=== PATIENT | female | born 1955 | race Caucasian/White ===

== ENCOUNTER 2021-06-26 11:36 | Outpatient (CLI) | payer BC, SELFPAY ==
[2021-06-26 11:39] LABS: Free T4 Free Thyroxine 1.34 ng/mL (0.78-2.19); Thyroid Stimulating Hormone Reflex < 0.015 uIU/mL (0.465-4.68)
== END 2021-06-26 11:37 | disposition home or self-care (01) ==
LOC: ANHLAB 11:37
PROVIDERS: PCP Internal Medicine Geriatric Medicine; Visit Provider Otolaryngology
DX: E04.1 Nontoxic single thyroid nodule (principal)
CPT/HCPCS: 36415; 84439; 84443

== ENCOUNTER 2021-07-02 12:01 | Outpatient (CLI) | payer BC, SELFPAY ==
--- NOTE | ~2021-07-02 | US_ITS ---
EXAMINATION: US thyroid DATE: 07/02/2021 12:21 INDICATION: Nontoxic goiter with single thyroid nodule TECHNIQUE: Multiple ultrasound images of the thyroid were obtained. COMPARISON: 08/20/2016 FINDINGS: The right thyroid lobe measures 6.6 x 2.4 x 2.6 cm. The left thyroid lobe measures 5.1 x 1.4 x 1.7 c m. Again seen are multiple bilateral solid or predominant solid thyroid hypoechoic nodules which are wider than tall with smooth margins and without echogenic foci nodules (TI-RADS 4, moderately suspic ious , FNA if >=1.5 cm, annual followup is >=1 cm). No significant interval change in the largest whi ch measures 3.8 cm in maximal diameter at the upper pole of the right thyroid. The 2 next largest nod ules in the right thyroid measure 1.7 cm and 1.6 cm in maximal diameters. The largest in the left thy roid lobe measures 1.5 cm in maximal diameter. The largest at the isthmus measures 1.1 cm. IMPRESSION: 1. Multinodular goiter with multiple TI-RADS 4 nodules. The 3 largest in the right thyroid lobe measu ring 1.6, 1.7 and 3.8 cm would meet consensus criteria for ultrasound-guided biopsy and biopsy of the largest nodule would be recommended. There has however been no significant interval change in size o f the largest nodule in nearly 5 years and could also consider continued follow-up. Reviewed, dictated and finalized at location A. ENGINEER IMPRESSION: 1. Multinodular goiter with multiple TI-RADS 4 nodules. The 3 largest in the ri ght thyroid lobe measuring 1.6, 1.7 and 3.8 cm would meet consensus criteria fo r ultrasound-guided biopsy and biopsy of the largest nodule would be recommende d. There has however been no significant interval change in size of the largest nodule in nearly 5 years and could also consider continued follow-up.
== END 2021-07-02 12:02 ==
PROVIDERS: PCP Internal Medicine Geriatric Medicine; Visit Provider Otolaryngology
DX: E04.2 Nontoxic multinodular goiter (principal)
CPT/HCPCS: 76536

== ENCOUNTER 2021-07-09 13:41 | Outpatient (CLI) | payer BC, SELFPAY ==
--- NOTE | ~2021-07-09 | US_ITS ---
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 TECHNIQUE: Multiple ultrasound grayscale images of the kidneys were obtained. COMPARISON: CT abdomen 06/03/2017 FINDINGS: The right kidney is absent. The left kidney measures 10.8 x 5.1 x 5.5 cm. The left kidney demonstrate s normal parenchymal echogenicity. There is no hydronephrosis. The bladder is normal. IMPRESSION: 1. Absent right kidney. 2. Normal left kidney. Reviewed, dictated and finalized at location B. ETING CONTENT MANAGER
== END 2021-07-09 13:42 ==
LOC: MICIMG 13:42
PROVIDERS: PCP Internal Medicine Geriatric Medicine
DX: C64.9 Malignant neoplasm of unspecified kidney, except renal pelvis (principal); Z90.5 Acquired absence of kidney
CPT/HCPCS: 76775

== ENCOUNTER 2022-05-28 07:58 | Outpatient (CLI) | payer MEDICARE, OTHER, SELFPAY ==
[2022-05-28 09:27] LABS: Thyroid Stimulating Hormone < 0.015 uIU/mL (0.465-4.680)
[2022-05-28 09:53] LABS: Free T4 Free Thyroxine 1.14 ng/mL (0.78-2.19)
== END 2022-05-28 07:59 | disposition home or self-care (01) ==
LOC: ANHLAB 08:02
PROVIDERS: PCP Internal Medicine Geriatric Medicine; Visit Provider Otolaryngology
DX: E04.1 Nontoxic single thyroid nodule (principal); E07.9 Disorder of thyroid, unspecified
CPT/HCPCS: 36415; 84439; 84443

== ENCOUNTER 2022-06-02 14:22 | Outpatient (CLI) | payer MEDICARE, OTHER, SELFPAY ==
--- NOTE | ~2022-06-02 | US_ITS ---
EXAMINATION: US thyroid DATE: 06/02/2022 15:44 INDICATION: Nontoxic single thyroid nodule. TECHNIQUE: Multiple ultrasound images of the thyroid were obtained. COMPARISON: Ultrasound 07/02/2021, 08/20/2016 FINDINGS: The right thyroid lobe measures 6.5 x 2.5 x 2.7 cm. The left thyroid lobe measures 4.5 x 1.7 x 1.6 c m. In the right thyroid lobe, there is a 3.4 cm predominantly solid, hypoechoic, wider than tall nod ule with lobulated margin without echogenic foci (TI-RADS TR4), stable from 08/20/2016. In the right th yroid lobe, there is a 1.8 cm solid, hypoechoic, wider than tall nodule with lobulated margin without echogenic foci (TR4), stable from 08/20/16. In the left thyroid lobe, there is a 1.5 cm solid, hypoech oic, wider than tall nodule with lobulated margin without echogenic foci (TR4), stable from 07/02/21 and increased from 0.9 cm on 08/20/16. There are multiple smaller thyroid nodules. IMPRESSION: 1. Stable multinodular goiter status post multiple benign biopsies according to the patient. Reviewed, dictated and finalized at location B.
== END 2022-06-02 14:23 ==
LOC: MICIMG 14:25
PROVIDERS: PCP Internal Medicine Geriatric Medicine; Visit Provider Otolaryngology
DX: E04.2 Nontoxic multinodular goiter (principal)
CPT/HCPCS: 76536

== ENCOUNTER → 2022-07-14 08:01 | Outpatient (CLI) | payer MEDICARE, OTHER, SELFPAY ==
--- NOTE | ~2022-07-14 | US_ITS ---
US renal BI DATE: 07/14/2022 09:04 INDICATION: Malignant neoplasm of kidney TECHNIQUE: Real-time imaging of left kidney, right nephrectomy bed, urinary bladder COMPARISON: 07/05/2021 bilateral renal ultrasound FINDINGS: No significant abnormality is noted in the right nephrectomy bed. The left kidney measures approximately 10.5 cm length. No left renal mass lesion or hydronephrosis is detected. The urinary bladder is relatively nondistended and unremarkable. IMPRESSION: Status post right nephrectomy; no significant abnormality of the left kidney Reviewed, dictated and finalized at Location A. Reviewed, dictated and finalized at location B. 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
== END ==
PROVIDERS: PCP Internal Medicine Geriatric Medicine
DX: C64.9 Malignant neoplasm of unspecified kidney, except renal pelvis (principal); Z90.5 Acquired absence of kidney
CPT/HCPCS: 76775

== ENCOUNTER 2022-10-04 08:01 | Emergency (ER) | payer MEDICARE, OTHER, SELFPAY ==
--- NOTE | ~2022-10-04 | XR_ITS ---
XR ankle LT min 3V 10/04/2022 08:18 Indication: Lateral malleolar pain. Procedure: 4 views left ankle Comparison: No prior studies for comparison. Findings: Mild lateral soft tissue swelling. There is an old nondisplaced lateral malleolar fracture with sclerotic margins. No acute fracture is identified. Ankle mortise intact. Talar dome is normal. There is a degenerative calcaneal enthesophyte. Impression: 1: No acute fracture. Reviewed, dictated and finalized at location A. ENFORCEMENT OFFICER Impression: 1: No acute fracture.
[2022-10-04 08:07] VITALS: BP 142/91; PULSE 81; RESP 16; TEMP 36.4; O2SAT 100
--- NOTE | 2022-10-04 08:27 | ED.GENADULT ---
HPI - General Adult General Chief complaint: Extremity Injury, Lower Stated complaint: tripped, left foot inj Source: patient Mode of arrival: ambulatory Limitations: no limitations History of Present Illness HPI narrative: Patient presents for evaluation of left ankle pain. She indicates she tripped over an object 2 days ago. She twisted her ankle in the process. She did not fall to the ground. She rates her pain 4/10 at rest and 8/10 with palpation of the area and with weight bearing. She took 1 dose of 600 mg ibuprofen for symptoms. She has a history of nephrectomy status post kidney cancer. She is currently in remission. She denies any other injuries. Related Data Home Medications Medication Instructions Recorded Confirmed alprazolam 0.5 mg tablet 0.5 mg PO QHS PRN Anxiety 06/25/21 10/04/22 zolpidem 5 mg tablet 5 mg PO QHS PRN Insomnia 07/27/22 10/04/22 Lactobacillus rhamnosus GG 10 1 cap PO DAILY 09/10/22 10/04/22 billion cell capsule (Culturelle) cholecalciferol (vitamin D3) 100 100 mcg PO DAILY 09/10/22 10/04/22 mcg (4,000 unit) tablet collagen, hydrolyzed 1 2 tablet PO DAILY 09/10/22 10/04/22 gram-ascorbate calcium 10 mg tablet escitalopram oxalate 10 mg tablet 10 mg PO QAM 09/10/22 10/04/22 [id number]-[id number] C 250 2 tablet PO DAILY 09/10/22 10/04/22 mg-herbal no.124 8.875 mg chewable tablet (Airborne (ascorbic acid)) terbinafine HCl 250 mg tablet mg 10/04/22 10/04/22 Allergies Allergy/AdvReac Type Severity Reaction Status Date / Time Sulfa (Sulfonamide Allergy Unknown RASH, FEVER Verified 10/04/22 08:13 Antibiotics) Review of Systems Review of Systems: CONSTITUTIONAL: Denies fever, chills, or sweats. EYES: Denies visual changes, redness, or discharge. ENT: Denies rhinorrhea, congestion, sore throat, or otalgia. CARDIOVASCULAR: Denies chest pain, palpitations, or edema. RESPIRATORY: Denies cough or dyspnea. GASTROINTESTINAL: Denies abdominal pain, nausea, vomiting, or diarrhea. GENITOURINARY: Denies dysuria or hematuria. SKIN: Denies rash or itching. MUSCULOSKELETAL: Reports left ankle pain and swelling NEUROLOGIC: Denies headache, numbness, dizziness, or weakness. PSYCHIATRIC: Denies anxiety or depression. [facility] Past Medical History Medical History (Updated 10/04/22 @ 08:34 by MAGALIE Barnett, ) Graves disease History of kidney cancer Surgical History Surgical History (Updated 10/04/22 @ 08:32 by MAGALIE Barnett, ) History of nephrectomy Family History Family History Father Family history of arthritis Mother Family history non-contributory Social History Social History Smoking status: Never smoker Alcohol intake: never Substance use: never Substance use type: does not use Lack of Transportation: No Lack of Food: Never True Current Housing: I Have Housing Concerned About Future Housing: No Difficulty Paying Gas/Electric Bills: No Difficulty Paying for Meds: No Currently Unemployed: No Education: Bachelor's Degree Difficulty w/ Childcare or Family Care: No Living arrangements: with family Additional living arrangements comments: [facility] Spiritual care concerns: No Exam Narrative: GENERAL: Well-appearing, well-nourished, and in no acute distress. HEAD: Normocephalic, atraumatic. EYES: PERRLA and EOMI. ENT: Nares clear, no rhinorrhea or epistaxis. Mucous membranes moist. Oropharynx without tonsillar hypertrophy exudate or other lesions. Bilateral TMs pearly west nonbulging NECK: Supple. No adenopathy or masses. No carotid bruits or JVD CHEST: Clear to auscultation. No respiratory distress. No wheezes rales or rhonchi HEART: Regular rate and rhythm. No murmur heard. Normal peripheral pulses. ABDOMEN: Soft, nontender, nondistended, normal active bowel sounds. EXTREMITIES: Trace swellin
== END 2022-10-04 08:46 | disposition home or self-care (01) ==
PROVIDERS: Emergency Provider Nurse Practitioner; PCP Internal Medicine Geriatric Medicine
DX: S93.402A Sprain of unspecified ligament of left ankle, initial encounter (principal); W18.40XA Slipping, tripping and stumbling without falling, unspecified, initial encounter; E05.00 Thyrotoxicosis with diffuse goiter without thyrotoxic crisis or storm; Z85.528 Personal history of other malignant neoplasm of kidney; Z90.5 Acquired absence of kidney
CPT/HCPCS: 73610; 99213; G0463

== ENCOUNTER → 2023-04-01 12:39 | Outpatient (CLI) | payer MEDICARE, OTHER, SELFPAY ==
--- NOTE | ~2023-04-01 | DEXA_ITS ---
Bone Density Report Name: JASPAL POWERS Age: 67 Sex: Female Ethnicity: White Date of : 1955 Indication: postmenopausal; screening for osteoporosis; prior fracture; Referring Provider: SIDRA AMAYA Study: Bone densitometry was performed. Exam Date: April 01, 2023 Accession number: [id number] Bone Density: Region BMD T-score Z-score Classification AP Spine (L1, L2, L3) 0.827 -1.7 0.0 Osteopenia Femoral Neck (Left) 0.649 -1.8 -0.2 Osteopenia Total Hip (Left) 0.816 -1.0 0.2 Normal Femoral Neck (Right) 0.638 -1.9 -0.3 Osteopenia Total Hip (Right) 0.800 -1.2 0.1 Osteopenia Total Hip Mean 0.808 -1.1 0.2 Osteopenia World Health Organization criteria for BMD impression classify patients as: Normal (T-score at or above -1.0), Osteopenia (T-score between -1.0 and -2.5), or Osteoporosis (T-score at or below -2.5). 10-year Fracture Risk(1): Major Osteoporotic Fracture 16% Hip Fracture 2.1% Reported Risk Factors: [place] (), Neck BMD=0.638, BMI=31.2, previous fracture (1) FRAX(R) Version 3.08. Fracture probability calculated for an untreated patient. Fracture probability may be lower if the patient has received treatment. Clinical Information Provided by Patient: Has had a low trauma fracture Has used the following medications: Vitamin D Patient maximum height was 65 Menopause Age: 61 Onset of menses at age 14 Number of children 2 Impression: The patient has low bone mass, based on the Right Femoral Neck T-score. The patient has an estimated ten-year risk of hip fracture of 2.1% and an estimated ten-year risk of major fracture of 16%, based on the WHO FRAX algorithm. The patient has risk factors, including: previous fracture. Discussion: BONE DENSITY IS LOW AT ONE OR MORE SKELETAL SITES. This patient's lowest T-score is low at one or more skeletal sites. It meets the World Health Organization's (WHO) criteria for ?low bone mass? (T-score between -1.0 and -2.5). The patient's 10-year risk of fracture as calculated by FRAX is less than the threshold where pharmacological therapy is recommended by the National Osteoporosis Foundation (NOF). However, all treatment decisions require clinical judgment and consideration of individual patient factors, including patient preferences, comorbidities, previous drug use, risk factors not captured in the FRAX model (e.g., frailty, falls, vitamin D deficiency, increased bone turnover, interval significant decline in bone density) and possible under or overestimation of fracture risk by FRAX. The patient should follow a healthful lifestyle (good nutrition with adequate calcium and vitamin D, and appropriate weight-bearing exercise). Follow-Up: Consider repeating this study in 2 to 3 years to reassess this patient's status, or sooner if there is
--- NOTE | ~2023-04-01 | MM_ITS ---
EXAMINATION: MM screening erika BI w viral HISTORY: Screening TECHNIQUE: Craniocaudal and mediolateral oblique 3-D tomosynthesis images were obtained and synthetic 2-D images were generated. CAD analysis was submitted and interpreted. COMPARISON: No prior mammogram is available for comparison at this institution. BREAST PARENCHYMAL COMPOSITION: Breast composed of scattered areas of fibroglandular density FINDINGS: There is no evidence of suspicious mass, calcification, or architectural distortion to sugg est malignancy in either breast. There has been no suspicious interval change. IMPRESSION: 1. No mammographic evidence of malignancy. 2. Recommend routine screening mammography in one year. BI-RADS Category 1: Negative Reviewed, dictated and finalized at location A.
== END ==
PROVIDERS: PCP Internal Medicine Geriatric Medicine
DX: Z13.820 Encounter for screening for osteoporosis (principal); Z12.31 Encounter for screening mammogram for malignant neoplasm of breast; Z78.0 Asymptomatic menopausal state; M85.89 Other specified disorders of bone density and structure, multiple sites
CPT/HCPCS: 77063; 77067; 77080

== ENCOUNTER 2023-11-03 07:52 | Outpatient (CLI) | payer MEDICARE, OTHER, SELFPAY ==
--- NOTE | ~2023-11-03 | US_ITS ---
Renal-Bladder ultrasound Clinical History: Malignant neoplasm of kidney Technique: Real-time sonographic imaging of the kidneys and urinary bladder was performed. Findings: The right kidney is surgically absent. Left kidney measures 10.5 cm in length. There is no hydronephrosis or renal calculus identified. Renal cortical echogenicity is within normal limits. No renal mass lesion is identified. The urinary bladder is partially distended at the time of this exam. No intraluminal echoes are ident ified. No abnormal wall thickening is seen. Impression: Left kidney and urinary bladder unremarkable. Status post right nephrectomy. Reviewed, dictated and finalized at location . Impression: Left kidney and urinary bladder unremarkable. Status post right nephrectomy.
== END 2023-11-03 07:53 ==
LOC: MICIMG 07:54
PROVIDERS: PCP Internal Medicine Geriatric Medicine
DX: C64.9 Malignant neoplasm of unspecified kidney, except renal pelvis (principal)
CPT/HCPCS: 76775

== ENCOUNTER 2025-06-04 09:52 | Outpatient (CLI) | payer MEDICARE, OTHER, SELFPAY ==
--- NOTE | ~2025-06-04 | US_ITS ---
Clinical history:Multinodular goiter EXAM:Ultrasound thyroid TECHNIQUE:Multiple static grayscale and color Doppler images were obtained. Comparisons: Ultrasound thyroid 06/02/2022 FINDINGS: Right thyroid lobe is surgically absent. Left thyroid lobe measures 4.0 x 1.3 x 1.7 cm and is heterogeneous with thyroid nodules. The largest left thyroid nodule is solid and hypoechoic measures 1.5 x 1.1 x 0.9 cm TR4. The finding has slightly decreased in size as compared to the study from 06/02/2022 IMPRESSION: 1. Right thyroid lobe is surgically absent. 2. Left thyroid lobe measures 4.0 x 1.3 x 1.7 cm and is heterogeneous with thyroid nodules. A thyroid scan is recommended to assess for cold nodules to assess for areas for fine-needle aspiration. 3. The largest left thyroid nodule measures 1.5 x 1.1 x 0.9 cm TR4. The finding has slightly decreased in size as compared to the study from 06/02/2022. A fine- needle aspiration is recommended if not already performed. Reviewed, dictated and finalized at location Q. IMPRESSION: 1. Right thyroid lobe is surgically absent. 2. Left thyroid lobe measures 4.0 x 1.3 x 1.7 cm and is heterogeneous with thyr oid nodules. A thyroid scan is recommended to assess for cold nodules to assess for areas for fine-needle aspiration. 3. The largest left thyroid nodule measures 1.5 x 1.1 x 0.9 cm TR4. The finding has slightly decreased in size as compared to the study from 06/02/2022. A fin e-needle aspiration is recommended if not already performed.
== END 2025-06-04 09:53 | disposition home or self-care (01) ==
LOC: MICIMG 09:53
PROVIDERS: PCP Nurse Practitioner Family; Visit Provider Nurse Practitioner Family
DX: E04.2 Nontoxic multinodular goiter (principal)
CPT/HCPCS: 76536

== ENCOUNTER 2025-06-14 14:57 | Outpatient (CLI) | payer MEDICARE, OTHER, SELFPAY ==
--- NOTE | ~2025-06-14 | MM_ITS ---
EXAMINATION: MM screening erika BI w viral HISTORY: Screening TECHNIQUE: Craniocaudal and mediolateral oblique 3-D tomosynthesis images were obtained and synthetic 2-D images were generated. CAD analysis was submitted and interpreted. COMPARISON: 04/01/2023 BREAST PARENCHYMAL COMPOSITION: Dense: The breasts are heterogeneously dense, which may obscure small masses FINDINGS: There is no evidence of suspicious mass, calcification, or architectural distortion to suggest malignancy in either breast. There has been no suspicious interval change. IMPRESSION: 1. No mammographic evidence of malignancy. 2. Recommend routine screening mammography in one year. BI-RADS Category 1: Negative Reviewed, dictated and finalized at location B.
== END 2025-06-14 14:58 | disposition home or self-care (01) ==
PROVIDERS: PCP Nurse Practitioner; Visit Provider Obstetrics & Gynecology
DX: Z12.31 Encounter for screening mammogram for malignant neoplasm of breast (principal)
CPT/HCPCS: 77063; 77067